=== PATIENT | female | born 1960 | race Caucasian/White ===

== ENCOUNTER → 2022-12-26 15:38 | Outpatient (REF) | payer OTHER, SELFPAY | LOC: HO.SL 15:38 | PROVIDERS: PCP Internal Medicine; Visit Provider Psychiatry & Neurology Neurology | DX: Z13.89 Encounter for screening for other disorder (principal) ==

== ENCOUNTER 2023-02-24 12:53 | Outpatient (REF) | payer OTHER, SELFPAY ==
--- NOTE | ~2023-02-24 | CT_ITS ---
EXAMINATION: CT HEAD WITHOUT CONTRAST CLINICAL INFORMATION: Mild cognitive impairment. COMPARISON: No prior available studies. TECHNIQUE: Contiguous axial imaging was performed from the skullbase to vertex without intravenous administration of contrast. This CT examination was performed using dose optimization techniques as appropriate, variously including the following: *Automated exposure control *Adjustment of mA and/or kV according to patient size (this includes techniques or standardized protocols for targeted exams where dose is matched to indication/reason for exam; i.e. extremities or head) *Use of iterative reconstruction technique DLP: 705 mGy-cm. FINDINGS: There is no evidence of acute intracranial hemorrhage or territorial infarction. No abnormal mass effect or midline shift is seen. Dodd to white matter differentiation is well preserved. No extra-axial fluid collections are identified. Incidental empty sella noted. The ventricles are normal in size. There is no abnormal attenuation within the brain parenchyma. The osseous structures and soft tissues are normal. The mastoid air cells and visualized portions of the paranasal sinuses are fairly well aerated. CT/CT head/brain wo IV con IMPRESSION: No acute intracranial pathology.
== END 2023-02-24 12:54 | disposition home or self-care (01) ==
LOC: HO.CT 12:53
PROVIDERS: Visit Provider Psychiatry & Neurology Neurology
DX: G31.84 Mild cognitive impairment of uncertain or unknown etiology (principal)
CPT/HCPCS: 70450

== ENCOUNTER → 2023-06-08 12:51 | Outpatient (REF) | payer OTHER, SELFPAY | LOC: HO.SL 12:51 | PROVIDERS: PCP Internal Medicine; Visit Provider Psychiatry & Neurology Neurology | DX: G47.33 Obstructive sleep apnea (adult) (pediatric) (principal) | CPT/HCPCS: 95806 ==

== ENCOUNTER → 2023-06-08 19:00 | Outpatient (BNV) | payer OTHER, SELFPAY | PROVIDERS: PCP Internal Medicine; Visit Provider Internal Medicine | DX: G47.33 Obstructive sleep apnea (adult) (pediatric) (principal) | CPT/HCPCS: 95806 ==